=== PATIENT | female | born 1980 | race African-American/Black ===

== ENCOUNTER 2022-01-11 21:45 | Inpatient (IN) | payer OTHER ==
[~2022-01-11] VITALS: Ht 165.1 cm; Wt 125.2 kg
[2022-01-12 00:56] LABS: BASOPHILS % 0.3 % (0.0-2.0); EOSINOPHILS % 0.9 % (0.0-5.0); HEMATOCRIT. 22.6 % (36.0-48.0); HEMOGLOBIN. 7.3 g/dL (12.0-16.0); LYMPHOCYTES % 20.8 % (20.0-50.0); MEAN CORPUSCULAR HEMOGLOBIN 26.7 pg (28.0-32.0); MEAN CORPUSCULAR VOLUME 82.5 fL (81.0-99.0); MEAN PLATELET VOLUME 7.8 fl (7.4-10.4); PLATELET 290 x1000/uL (130-400); RED BLOOD CELL COUNT 2.73 mill/uL (4.2-5.4); RED CELL DISTRIBUTION WIDTH 13.5 % (11.6-14.6)
[2022-01-12 01:07] LABS: CHLORIDE 103 mEq/L (98-107)
[2022-01-12 06:15] LABS: CLARITY URINE CLEAR (CLEAR); COLOR URINE YELLOW (YELLOW); KETONES URINE TRACE (NEGATIVE); LEUKOCYTE ESTERASE URINE NEGATIVE (NEGATIVE); NITRITE URINE NEGATIVE (NEGATIVE); OCCULT BLOOD URINE NEGATIVE (NEGATIVE); PROTEIN URINE NEGATIVE (NEGATIVE); SPECIFIC GRAVITY URINE 1.029 (1.005-1.030); UROBILINOGEN URINE 0.2 E.U./dL (0.2-1.0)
[2022-01-12] MEDS ORDERED: SODIUM CHLORIDE 0.9% 1,000 ML IV ONE (06:15)
[2022-01-12 07:09] LABS: TOTAL IRON BINDING CAPACITY 377 ug/dL (250-450)
[2022-01-12 13:00] VITALS: BP 127/72
[2022-01-12 13:30] VITALS: BP 127/72
[2022-01-12] MEDS ORDERED: CLONIDINE 0.1MG TABLET PO PRN (15:00)
[2022-01-12] MEDS ORDERED: ONDANSETRON HCL 4MG/2ML INJ IV PRN (15:00)
[2022-01-12] MEDS ORDERED: ACETAMINOPHEN 325MG TABLET PO PRN (15:00)
[2022-01-12] MEDS: SODIUM CHLORIDE 0.9% 1,000 ML IV SCH (15:39)
[2022-01-12 16:00] VITALS: BP 153/77
[2022-01-12] MEDS ORDERED: CRES10 PO (16:44)
[2022-01-12] MEDS ORDERED: LABE200T9 MT (16:47)
[2022-01-12] MEDS ORDERED: METF500S7 PO (16:47)
[2022-01-12] MEDS ORDERED: AMLO2.5T45 MT (16:47)
[2022-01-12] MEDS: BLOOD SUGAR DIAGNOSTIC STRIP TEST SCH ×2 (17:44→22:15)
[2022-01-12] MEDS ORDERED: DEXTROSE 50% WATER 50ML SYRINGE IV PRN (17:45)
[2022-01-12] MEDS: INSULIN LISPRO 100 UNITS/ML SUBCUT SCH ×2 (17:45→22:15)
[2022-01-12 20:00] VITALS: BP 141/80
[2022-01-13] VITALS (7 sets, daily range): BP systolic 129–148; BP diastolic 69–88
[2022-01-13] MEDS: SODIUM CHLORIDE 0.9% 1,000 ML IV SCH (04:56)
[2022-01-13] MEDS: INSULIN LISPRO 100 UNITS/ML SUBCUT SCH ×2 (06:15→12:50)
[2022-01-13] MEDS: BLOOD SUGAR DIAGNOSTIC STRIP TEST SCH ×2 (06:28→13:15)
[2022-01-13 07:46] LABS: BASOPHILS % 0.6 % (0.0-2.0); EOSINOPHILS % 0.8 % (0.0-5.0); HEMATOCRIT. 23.3 % (36.0-48.0); HEMOGLOBIN. 7.6 g/dL (12.0-16.0); MEAN CORPUSCULAR HEMOGLOBIN 26.5 pg (28.0-32.0); MEAN CORPUSCULAR VOLUME 81.5 fL (81.0-99.0); MEAN PLATELET VOLUME 8.2 fl (7.4-10.4); NEUTROPHILS % 67.6 % (40.0-76.0); PLATELET 265 x1000/uL (130-400); RED BLOOD CELL COUNT 2.86 mill/uL (4.2-5.4); RED CELL DISTRIBUTION WIDTH 14.2 % (11.6-14.6)
[2022-01-13 08:01] LABS: CHLORIDE 106 mEq/L (98-107)
[2022-01-13] MEDS ORDERED: FERR324T4 MT (12:41)
[2022-01-13] MEDS ORDERED: ASCO-339 MT (12:41)
[2022-01-13 14:59] LABS: HEMATOCRIT 26.4 % (36.0-48.0); HEMOGLOBIN 8.5 g/dL (12.0-16.0)
== END 2022-01-13 16:20 | disposition home or self-care (01) | DRG 812 ==
LOC: ER 21:45 → EDBEDREQ 01-12 09:20 → EDBEDREQTM 01-12 09:20 → ENRESERV 01-12 10:08 → 6EST 01-12 14:10
PROVIDERS: ADMIT Internal Medicine; ATTEND Internal Medicine
PROC: 30233N1 Transfusion of Nonautologous Red Blood Cells into Peripheral Vein, Percutaneous Approach (ICD-10-PCS; principal; 2022-01-12)
DX: D62 Acute posthemorrhagic anemia (principal); D25.9 Leiomyoma of uterus, unspecified; N92.0 Excessive and frequent menstruation with regular cycle; E11.9 Type 2 diabetes mellitus without complications; E78.5 Hyperlipidemia, unspecified; M19.90 Unspecified osteoarthritis, unspecified site; N93.8 Other specified abnormal uterine and vaginal bleeding; I10 Essential (primary) hypertension; Z79.4 Long term (current) use of insulin; Z82.49 Family history of ischemic heart disease and other diseases of the circulatory system; Z79.84 Long term (current) use of oral hypoglycemic drugs
CPT/HCPCS: 36415; 71045; 76830; 76856; 80048; 80053; 81003; 82962; 83540; 83550; 83880; 84484; 85014; 85018; 85025; 85044; 86850; 86900; 86920; 86945; 93005; 99291; J7030; P9016